=== PATIENT | male | born 1960 | race Caucasian/White ===

== ENCOUNTER 2017-06-05 08:20 | Day surgery (SDC) | payer BC ==
[2017-06-04 12:58] VITALS: BMI 35.9
[2017-06-05] MEDS ORDERED: Midazolam HCl 2 mg/2 ml Vial ONE (10:48)
[2017-06-05] MEDS ORDERED: EPINEPHrine 1 MG/ML AMP ONE (12:27)
[2017-06-05] MEDS ORDERED: Fentanyl 100 MCG/2 ML VIAL ONE ×2 (12:29→13:39)
[2017-06-05] MEDS ORDERED: SUGAMMADEX SODIUM 500 MG/5 ML VIAL ONE (13:19)
--- NOTE | 2017-06-05 13:28 | OP ---
DATE OF PROCEDURE: 06/05/2017 SURGEON: Dr. Sadiq Herrera PREOPERATIVE DIAGNOSES: 1. Laryngeal lesion. 2. Hoarseness. 3. Chronic cough. POSTOPERATIVE DIAGNOSES: 1. Laryngeal lesion. 2. Hoarseness. 3. Chronic cough. PROCEDURE PERFORMED: 1. Microsuspension laryngoscopy with left laryngeal biopsy. 2. Rigid bronchoscopy. PROCEDURE IN DETAIL: After consent was obtained, the patient was identified, brought to the operatin g room and placed on the table in supine position. Anesthesia was obtained with the Urban jet kory tilating tube and the patient was positioned for surgery. A laryngoscope was suspended from the tabl e after it was placed and allowed for visualization of the larynx. The anterior arytenoid, everythin g the mucosa was very boggy and edematous throughout the larynx and esophagus supraglottic area. Voc al cords appeared normal as did the subglottic space. The anterior arytenoid area had some whitish d iscoloration and that area was biopsied twice and sent for permanent histologic evaluation. We then removed the jet ventilating tube and placed a ventilating bronchoscope, passed the cords and then exa mined the trachea and both major bronchi. No significant abnormalities were found. The patient was then awakened, extubated, and taken to the recovery room and remained in stable condition prior to di [facility] home.
--- NOTE | 2017-06-07 08:02 | EKG ---
Test Reason : PREOP Blood Pressure : / mmHG Vent. Rate : 068 BPM Atrial Rate : 068 BPM P-R Int : 150 ms QRS Dur : 096 ms QT Int : 410 ms P-R-T Axes : 104 065 063 degrees QTc Int : 435 ms Normal sinus rhythm Normal ECG No previous ECGs available Confirmed by DR. Jg NEWELL ([id number]) on 06/07/2017 8:01:59 AM Referred By: LORRAINE Confirmed By:DR. Jg NEWELL
== END 2017-06-05 15:10 | disposition home or self-care (01) ==
LOC: SDC 08:20
PROVIDERS: ATTEND Specialist
PROC: 0CBS8ZX Excision of Larynx, Via Natural or Artificial Opening Endoscopic, Diagnostic (ICD-10-PCS; principal; 2017-06-05)
PROC: 0BJ08ZZ Inspection of Tracheobronchial Tree, Via Natural or Artificial Opening Endoscopic (ICD-10-PCS; principal; 2017-06-05)
DX: J38.7 Other diseases of larynx (principal); F17.210 Nicotine dependence, cigarettes, uncomplicated; K21.9 Gastro-esophageal reflux disease without esophagitis; G47.30 Sleep apnea, unspecified; I10 Essential (primary) hypertension; M19.90 Unspecified osteoarthritis, unspecified site; F32.9 Major depressive disorder, single episode, unspecified; Z79.899 Other long term (current) drug therapy; Z99.89 Dependence on other enabling machines and devices
CPT/HCPCS: 88305; 88312; 93005; 93010; 96374; J0171; J2250; J3010

== ENCOUNTER 2018-07-02 11:38 | Day surgery (SDC) | payer BC ==
[2018-07-01 12:45] VITALS: BMI 36.1
[2018-07-02] MEDS ORDERED: EPINEPHrine 1 MG/ML AMP ONE (14:04)
[2018-07-02] MEDS ORDERED: Midazolam HCl 2 mg/2 ml Vial ONE (14:05)
[2018-07-02] MEDS ORDERED: Propofol 500 MG/50 ML VIAL ONE (14:05)
[2018-07-02] MEDS ORDERED: Fentanyl 100 MCG/2 ML VIAL ONE ×2 (14:05→14:40)
[2018-07-02] MEDS ORDERED: Morphine 4 MG/ML VIAL ONE (15:28)
--- NOTE | 2018-07-03 09:26 | OP ---
DATE OF PROCEDURE: 07/02/2018 PREOPERATIVE DIAGNOSES: Hoarseness and bilateral vocal cord lesion. POSTOPERATIVE DIAGNOSES: Ira's edema and bilateral vocal cord lesions. PROCEDURES PERFORMED: Microsuspension laryngoscopy with vocal cord biopsy and rigid bronchoscopy. DESCRIPTION OF PROCEDURE: After consent was obtained, the patient was identified and brought to the operating room, placed on the operating table in supine position. General endotracheal anesthesia was obtained with a Urban jet ventilating tube, and the patient was positioned for laryngoscopy. An operating laryngoscope was placed and suspended from the table. As the larynx was visualized, photographs were obtained, which revealed bilateral floppy redundant supralaryngeal tissue and false cord tissue without clear lesions on the true vocal cords themselves. A rigid scope was placed beyond the trachea all the way down to the tika and left mainstem, which was found to be normal. Biopsies were obtained of the left false cord, redundant mucosa, and the right true cord and sent for permanent histologic evaluation. They did not appear to be particularly suspicious for carcinoma. Again, photographs were obtained to document that. We then removed the Urban tube and placed a #6 endotracheal tube over rigid scope. The patient then underwent systematic oropharyngeal, hypopharyngeal, and laryngeal examination without any additional lesions identified. The patient was awakened, extubated, ultimately taken to recovery room in stable condition prior to discharge home. Job ID: [id number]
== END 2018-07-02 16:20 | disposition home or self-care (01) ==
LOC: SDC 11:38
PROVIDERS: ATTEND Specialist
PROC: 0CBT8ZX Excision of Right Vocal Cord, Via Natural or Artificial Opening Endoscopic, Diagnostic (ICD-10-PCS; principal; 2018-07-02)
PROC: 0CBV8ZX Excision of Left Vocal Cord, Via Natural or Artificial Opening Endoscopic, Diagnostic (ICD-10-PCS; principal; 2018-07-02)
DX: J38.3 Other diseases of vocal cords (principal); J38.2 Nodules of vocal cords; K21.9 Gastro-esophageal reflux disease without esophagitis; Z79.82 Long term (current) use of aspirin; Z79.899 Other long term (current) drug therapy
CPT/HCPCS: 88305; 93005; 93010; J0171; J2250; J2270; J2704; J3010